=== PATIENT | male | born 1970 | race Caucasian/White ===

== ENCOUNTER 2024-10-27 00:56 | Emergency (ER) | payer SELFPAY ==
[2024-10-27 01:12] VITALS: BP 149/98
[2024-10-27] MEDS ORDERED: ELIQUIS5 MG PO (01:14)
[2024-10-27 01:15] VITALS: BP 141/110
[2024-10-27] MEDS ORDERED: SODIUM CHLORIDE 0.9% 1,000 ML IV STA (01:15)
[2024-10-27] MEDS ORDERED: PROMETHAZINE HCL 25 MG/ML AMP IV ONE (01:15)
[2024-10-27] MEDS ORDERED: DiphenhydrAMINE HCL 50 MG/ML SDV IV ONE (01:15)
[2024-10-27 01:30] VITALS: BP 138/91
[2024-10-27 01:48] LABS: BASO% 0.3 % (0-3); EOS% 0.9 % (0-8); HEMATOCRIT 41.4 % (39.0-50.0); HEMOGLOBIN 14.2 g/dl (14.0-18.0); IMMATURE GRANULOCYTES 0.3 % (0.0-5.0); LYMPH% 11.2 % (15-41); MEAN CELL VOLUME 93.7 fL CALC (80.0-100.0); MEAN CORPUSCULAR HGB 32.1 pG CALC (26.0-32.0); MEAN CORPUSCULAR HGB CONC 34.3 g/dL CAL (32.0-36.0); MONO% 7.9 % (2-13); NEUT# 7.73 thou/uL (1.82-7.42); NEUT% 79.4 % (42-76); RED BLOOD COUNT 4.42 mill/uL (4.70-6.10); RED CELL DISTRI WIDTH 12.5 % (11.5-15.5)
[2024-10-27 02:03] LABS: ALBUMIN 4.6 g/dL (3.2-5.0); BILIRUBIN, TOTAL 1.2 mg/dL (0.2-1.3); CREATININE 1.1 mg/dL (0.7-1.3); POTASSIUM 3.5 mmol/l (3.5-5.1); TOTAL PROTEIN 7.3 g/dL (6.3-8.2)
[2024-10-27] MEDS ORDERED: LACTATED RINGER'S 1,000 ML IV ONE ×2 (03:05→04:15)
[2024-10-27] MEDS ORDERED: LORazepam 2 MG/ML IV ONE (04:15)
[2024-10-27] MEDS ORDERED: PROCHLORPERAZINE EDISYLATE 10 MG/2 ML SDV IV ONE (04:15)
[2024-10-27 04:58] LABS: URINE BILIRUBIN - DIPSTICK Negative (NEGATIVE); URINE BLOOD DIPSTICK Small (NEGATIVE); URINE GLUCOSE - DIPSTICK Negative (NEGATIVE); URINE KETONE 40 mg/dL (NEGATIVE); URINE LEUK ESTERASE Negative (NEGATIVE); URINE NITRITE - DIPSTICK Negative (Negative); URINE PH 6.5 (4.5-8.0); URINE PROTEIN - DIPSTICK Negative (NEG-TRACE); URINE SPECIFIC GRAVITY 1.015; URINE UROBILINOGEN - DIPSTICK 0.2 E.U./dL (0.2)
[2024-10-27 04:59] LABS: URINE COLOR Yellow
[2024-10-27 05:17] LABS: URINE RBC 25-50 RBC/hpf (0-5)
[2024-10-27 05:18] LABS: URINE BACTERIA FEW hpf; URINE EPITHELIAL CELLS FEW EPI/hpf (0-FEW)
[2024-10-27 05:30] VITALS: BP 129/98
[2024-10-27] MEDS ORDERED: PROCHLORPER25 MG RE (05:35)
== END 2024-10-27 06:44 | disposition home or self-care (01) | DRG 392 ==
LOC: ED 00:56
PROVIDERS: Family Medicine
DX: R11.2 Nausea with vomiting, unspecified (principal); D68.2 Hereditary deficiency of other clotting factors; F12.10 Cannabis abuse, uncomplicated; Z86.718 Personal history of other venous thrombosis and embolism
CPT/HCPCS: J0780; J1200; J2060; J2550